=== PATIENT | male | born 1960 | race Caucasian/White ===

== ENCOUNTER 2017-05-16 16:13 | Emergency (ER) | payer SELFPAY ==
[~2017-05-16] VITALS: Ht 167.6 cm; Wt 82.0 kg
[2017-05-16 18:30] VITALS: BP 140/85
== END 2017-05-16 18:46 | disposition left against medical advice (07) ==
LOC: ER 16:31
DX: M25.561 Pain in right knee (principal); Z53.21 Procedure and treatment not carried out due to patient leaving prior to being seen by health care provider